=== PATIENT | female | born 1960 | race Caucasian/White ===

== ENCOUNTER 2016-04-27 11:04 | Day surgery (SDC) | payer OTHER ==
[~2016-04-27 11:04] MED LIST: ALBUTEROL HFA60 DOSE IN
--- NOTE | 2016-04-27 12:03 | NUR ---
PREOP INSTRUCTIONS GIVEN TO PATIENT. QUESTIONS ANSWERED. PATIENT VERBALIZES UNDERSTANDING. CONSENT CONFIRMED. NO PREOP MEDICATIONS GIVEN. PATIENT RESTING COMFORTABLY. KB
--- NOTE | 2016-04-27 14:17 | NUR ---
ID PT IN PRE-OP HOLDING ALLERGIES NOTED CONFIRMS CONSENT ANTIBIOTIC HUNG TO BE STARTED BY ANES
[2016-04-27] MEDS ORDERED: NORCO1 TA1 PO (15:22)
[2016-04-27] MEDS ORDERED: DOCUSATE CALCI240 MG PO (15:24)
[2016-04-27] MEDS ORDERED: METAMUCIL EQUIV1 PKT PO (15:25)
--- NOTE | 2016-04-27 15:26 | Provider's Discharge Care Plan ---
Problem, Goal, Plan Problem List 1. Hemorrhoids
--- NOTE | 2016-04-27 15:26 | Provider's Discharge Care Plan ---
Problem, Goal, Plan Problem List 1. Hemorrhoids
--- NOTE | 2016-04-27 15:30 | NUR ---
PATIENT ARRIVED TO PACU AT 1525. SPONT RESP. AROUSABLE. VITALS STABLE. PATIENT DENIES ANY NAUSEA OR PAIN AT THIS TIME. WILL CONTINUE TO MONITOR.
--- NOTE | 2016-04-27 16:03 | NUR ---
AT APPROXIMATELY 1550, PATIENT BEGAN CRYING AND COMPLAINING OF SOB ALONG WITH PAIN AND PRESSURE IN CHEST. AUDIBLE WHEEZING HEARD BY RN. VITALS STABLE ON ROOM AIR, WITH TELEMETRY SHOWING NSR. O2 PLACED ON PATIENT VIA MASK. RN SUMMONED ANESTHESIA PROVIDER. RACEMIC EPI INHALATION GIVEN, FOLLOWED BY DUO NEB TREATMENT. PATIENT ALSO GIVEN MIDAZOLAM FOR ANXIETY. PATIENT NO LONGER WHEEZING- RESTING QUIETLY. WILL CONTINUE TO MONITOR
[2016-04-27 16:39] VITALS: BP 142/96
--- NOTE | 2016-04-27 17:48 | NUR ---
PT ADMITTED IN STABLE CONDITION AND HAS BEEN RESTING, SLOWLY ADVANCING DIET, AMBULATING, VOIDED. REPORTS SOME SLIGHT PAIN AND DISCOMFORT REPORTED.
--- NOTE | 2016-04-27 18:19 | NUR ---
PT RECOVERED AND DC'D PER DR SPEARS ORDERS. PT STABLE, A/O, AMBULATORY, VOIDING, VSS, AFEBRILE, NO N/V, PASSING GAS, PAIN AT A MINIMUM. REVIEWED DC PAPERWORK INCLUDING RX AND PLAN OF CARE AT HOME. PT VERBALIZED UNDERSTANDING. DAUGHTER AND S.O. AT BEDSIDE. PT TAKEN OUT TO DC VEHICLE IN STABLE CONDITION VIA WHEELCHAIR BY TURRET LATHE TENDER.
--- NOTE | 2016-04-27 20:43 | OPERATIVE REPORT ---
DATE OF SURGERY: 04/27/2016 SURGEON: Jc Brush MD PREOPERATIVE DIAGNOSES: 1. Rectal bleeding 2. Rectal mucosal prolapse 3. Personal history of colon polyps POSTOPERATIVE DIAGNOSES: 1. Cecal ulceration 2. Mild gastritis 3. Rectal mucosal prolapse 4. Hiatal hernia 5. Diverticulosis PROCEDURES PERFORMED: 1. Colonoscopy with biopsy 2. Esophagogastroduodenoscopy with biopsy 3. Procedure for prolapse and hemorrhoids ANESTHESIA: General endotracheal. COMPLICATIONS: No intraoperative complications were encountered. INDICATIONS: The patient is a 55-year-old woman with longstanding and progressive mucosal prolapse. She has had bleeding associated with this. She has the need for self reduction of rectal mucosa and has not had endoscopic evaluation. SURGICAL TECHNIQUE: The patient was taken to the endoscopy suite, where a general anesthetic was administered and patient placed in the left lateral decubitus position. A well-lubricated colonoscope was advanced the length of colon under direct vision. There was obvious rectal mucosal prolapse seen of a rather generous nature. The colonoscope was advanced to the cecum. Just above the ileocecal valve on the opposite side of the colon, there was an ulcerated lesion. This was not associated with true mucosal lesion. This area was sampled with the biopsy forceps and the surrounding mucosa looked normal. There were no signs of diffuse inflammatory bowel disease and this did not affect the ileocecal valve. Once samples were obtained, the colonoscope was withdrawn. Multiple diverticula were seen in the sigmoid, but no other mucosal abnormalities, including a retroflexed view of the rectum. The upper GI endoscope was introduced and the stomach and duodenum examined. The duodenum was normal. On withdrawal, there was some mild erythema in the antrum and a single biopsy was taken for Helicobacter testing using the CLOtest. A retroflexed view demonstrated a sliding-type hiatal hernia of moderate dimensions. On withdrawal, the squamocolumnar junction was examined and did not appear to be particularly unusual and the rest of the esophagus was normal. After completion of endoscopy, the patient was repositioned in prone jackknife position with buttocks by tapes. The patient had obvious circumferential mucosal prolapse without circular lines. This did not appear to be full-thickness rectal procidentia. After prep and drape, an inferior hemorrhoidal block was done with 0.5% Marcaine with epinephrine. The [employer] rectal stapler was used. The speculum was introduced and a circumferential pursestring of 3-0 Prolene was placed in the rectal mucosa about 2 cm above the dentate line. There was quite a lot of redundant mucosa in this area. This was gathered up and placed through the third hole in the anvil and tied down. The stapler was then connected and the stapler fired. The stapler was held closed for about a minute for hemostasis and then opened up and removed. A good circumferential band of about 2 cm of rectal mucosa was obtained. Initially, there was little bleeding from the staple line. Additional Marcaine was instilled and pressure was held with a sponge. This was then reexamined and there was absolutely no sign of bleeding whatsoever from the staple line when examined. The protrusion of mucosa was also markedly better. The patient left in good condition.
== END 2016-04-27 18:15 | disposition home or self-care (01) ==
LOC: OR SRH 11:04 → SCU SRH 11:07
PROVIDERS: Surgery
PROC: 0DB68ZX Excision of Stomach, Via Natural or Artificial Opening Endoscopic, Diagnostic (ICD-10-PCS; principal; 2016-04-27 13:00)
PROC: 0DBH8ZX Excision of Cecum, Via Natural or Artificial Opening Endoscopic, Diagnostic (ICD-10-PCS; principal; 2016-04-27 13:00)
PROC: 06BY0ZC Excision of Hemorrhoidal Plexus, Open Approach (ICD-10-PCS; principal; 2016-04-27 13:00)
DX: K62.3 Rectal prolapse (principal); K64.2 Third degree hemorrhoids; K63.3 Ulcer of intestine; K29.70 Gastritis, unspecified, without bleeding; K44.9 Diaphragmatic hernia without obstruction or gangrene; K57.30 Diverticulosis of large intestine without perforation or abscess without bleeding; J44.9 Chronic obstructive pulmonary disease, unspecified; Z72.0 Tobacco use
CPT/HCPCS: 29229; 29240; 50004; 60001; 70002; 80102; 82281; 82943; 82944; 83120; 83526; 90705

== ENCOUNTER 2016-09-04 17:20 | Emergency (ER) | payer OTHER ==
[~2016-09-04 17:20] MED LIST changes: +DOCUSATE CALCI240 MG PO; +METAMUCIL EQUIV1 PKT PO; +NORCO1 TA1 PO
--- NOTE | 2016-09-04 19:46 | DIAGNOSTIC IMAGING REPORT ---
PROCEDURE: XR KNEE 4 VIEWS - LEFT INDICATION: TRAUMA/INJURY TECHNIQUE: Four views of the left knee. COMPARISON: Plain films of the left tibia and fibula from 10/03/2013 FINDINGS: Diffusely decreased mineralization. The joint is in normal alignment. There is a chronic compression of the lateral tibial plateau with flattening of the lateral tibial spine. Slight cortical irregularity along the lateral femoral condyle. The patella appears grossly intact. Small to moderate sized suprapatellar joint effusion. No chondrocalcinosis. IMPRESSION: 1. Chronic mild impaction deformity of the lateral tibial plateau with flattening of the lateral tibial spine, similar morphology compared to the prior study. 2. An acute on chronic fracture would not be well seen given prior deformity and demineralization. An MRI is recommended. 3. Joint effusion. 4. Discussed with Dr. Paulino in the emergency room.
--- NOTE | 2016-09-04 19:48 | DIAGNOSTIC IMAGING REPORT ---
PROCEDURE: XR TIBIA AND FIBULA - LEFT INDICATION: TRAUMA/INJURY TECHNIQUE: Two views of the left tibia and fibula COMPARISON: 10/03/2013 FINDINGS: Decreased mineralization. No definite acute fractures. There is a compression/impaction deformity involving the lateral tibial plateau, similar morphology compared to the prior study. Healed deformity of prior distal fibular diaphyseal fracture. Alignment is normal. No new soft tissue calcifications or radiodense foreign bodies. IMPRESSION: 1. Chronic lateral tibial plateau and distal fibular deformities. 2. No definite acute abnormalities.
--- NOTE | 2016-09-04 20:08 | ED CLINICAL REPORT ---
Clinical Report - Physicians/Mid Levels [facility] [address] [place] [address] 09/04/2016 17:21 Patient: MAGDALENA GILL Time Seen: 17:35. Arrived- By private vehicle. Historian- patient. CPT: ER phys charges level 3 (#[id number]). HISTORY OF PRESENT ILLNESS Chief Complaint: INJURY TO LEFT LOWER EXTREMITY (KNEE). Location of injuries- left knee. 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 The patient complains of moderate pain. No blow to the head or neck pain. REVIEW OF SYSTEMS The patient complains of pain on weight bearing. No numbness, weakness, laceration or fever. All systems otherwise negative, except as recorded above. PAST HISTORY See nurses notes. Hypertension. Cellulitis. Sprain. Hemorrhoids. Substance Abuse. Nephrolithiasis. Degenerative Joint Disease. Arthritis. Hernia. Sciatica. Acute Pain. Lung Disease. Otitis Externa. - ADDITIONAL SURGERIES: Fracture Repair. Tubal Ligation. Ureteral Stent. Medications: Albuterol Sulfate Inhalation 2 unit doses, PRN. Allergies: Amoxicillin. (facial swelling) Codeine. Possible (GI upset). SOCIAL HISTORY Heavy tobacco smoker (cigarette)- less than 1 pack per day. Occasional alcohol use. ADDITIONAL NOTES The nursing notes have been reviewed. PHYSICAL EXAM Vital Signs: 09/04/2016 17:35 BP: 141/79. HR: 90. RR: 20. O2 saturation: 100%. Temp: 98.1 F. Pain level now: 5/10. Appearance: Alert. Patient in mild distress. Head: Head non-tender. Neck: Non-tender. Respiratory: Chest nontender. Abdomen: Nontender. Back: No tenderness. Skin: Skin intact. Skin warm. Extremities: Left knee: moderate tenderness and mild swelling located in the suprapatellar area. Limited ROM (diminished flexion). Neurovascular intact distally. No ligamentous laxity present. No joint effusion. No abrasion, ecchymosis or deformity. Neuro: Oriented X 3. No motor deficit. No sensory deficit. Reflexes normal. LABS, X-RAYS, AND EKG Lt Knee X-ray: (mild joint effusion, DJD. No acute findings. Would follow up with MRI.). Views: AP, lateral and oblique. Technique: good. The X-rays were independently viewed by me. A comparison with prior films reveals that the findings are unchanged. PROGRESS AND PROCEDURES Patient/family counseled. Disposition: Discharged. Condition: stable. CLINICAL IMPRESSION Left knee effusion; sprain of the left posterior cruciate ligament. Fall from tree. Hamstring and gastrocnemius strain. INSTRUCTIONS Apply ice for 15-20 minutes three times a day for one days followed by moist heat 15-20 minutes three times a day for one weeks until better. You may walk and bear weight as tolerated. Warnings: GENERAL WARNINGS: Return or contact your physician immediately if your condition worsens or changes unexpectedly, if not improving as expected, or if other problems arise. Your Current Medications: CONTINUE TAKING THE FOLLOWING MEDICATIONS: Albuterol Sulfate Inhalation : 2 unit doses PRN. Prescription Medications: Hydrocodone/APAP 5mg/325mg: take 1 to 2 orally every 6 hours as needed for pain. Dispense fifteen (15). No refills. Ibuprofen 600mg tablets: take 1 tablet orally every 8 hours as needed for pain. Dispense thirty (30). No refills. Soma 350 mg: Take 1 orally every 6 hours as needed for muscle spasm. Dispense twenty (20). No refills. Substitution is permissible. Understanding of the discharge instructions verbalized by patient. [facility] [address] [facility] [address] Follow up in one week. Call for an appointment. Reason for referral: knee follow up and MRI examination recommended by radiologist. (Electronically signed by Eliecer Paulino MD 09/07/2016 12:38)
--- NOTE | 2016-09-04 20:08 | ED ORDER SUMMARY ---
..... Patient: MAGDALENA GILL OrderSheet [facility] VisitID: [id number] [address] [place] [address] 55y, F Registration Date/Time: 09/04/2016 ORDER SHEET Weight: 68.0 kg (stated) Allergies: Amoxicillin, Codeine GENERAL ORDERS: Knee 4V Left Urgent (17:48 09/04/2016 Jaimee GHOSH) (Ack 17:50 LORENZAoerdangelo) (18:38 DDean R.N.) Tibia/Fibula Left Urgent (17:48 09/04/2016 Jaimee GHOSH) (Ack 17:50 LORENZAoemartha) (18:38 DDean R.N.) Knee Immobilizer (19:38 09/04/2016 Jaimee GHOSH) (Cancelled: Patient Blkfeck43:46 Jaimee GHOSH) Crutches (19:39 09/04/2016 Jaimee GHOSH) (Cancelled: Patient [id number]:46 Jaimee GHOSH) Luis Wrap (19:46 09/04/2016 Jaimee GHOSH) (20:04 DDean R.N.) MEDICATION ORDERS: IV FLUIDS: ORDER SHEET NOTES: [Electronically signed by Randee Han R.N. (20:42 09/04/2016)] [Electronically signed by Eliecer Paulino MD (12:38 09/07/2016)] [Electronically locked/signed by Randee Han R.N. (20:42 09/04/2016)]
--- NOTE | 2016-09-04 20:08 | ED ORDER SUMMARY ---
..... Patient: MAGDALENA GILL OrderSheet [facility] VisitID: [id number] [address] [place] [address] 55y, F Registration Date/Time: 09/04/2016 ORDER SHEET Weight: 68.0 kg (stated) Allergies: Amoxicillin, Codeine GENERAL ORDERS: Knee 4V Left Urgent (17:48 09/04/2016 Jaimee GHOSH) (Ack 17:50 LORENZAoerdangelo) (18:38 DDean R.N.) Tibia/Fibula Left Urgent (17:48 09/04/2016 Jaimee GHOSH) (Ack 17:50 LORENZAoemartha) (18:38 DDean R.N.) Knee Immobilizer (19:38 09/04/2016 Jaimee GHOSH) (Cancelled: Patient [id number]:46 Jaimee GHOSH) Crutches (19:39 09/04/2016 Jaimee GHOSH) (Cancelled: Patient [id number]:46 Jaimee GHOSH) Luis Wrap (19:46 09/04/2016 Jaimee GHOSH) (20:04 DDean R.N.) MEDICATION ORDERS: IV FLUIDS: ORDER SHEET NOTES: [Electronically signed by Randee Han R.N. (20:42 09/04/2016)] [Electronically signed by Eliecer Paulino MD (12:38 09/07/2016)] [Electronically locked/signed by Randee Han R.N. (20:42 09/04/2016)]
--- NOTE | 2016-09-04 20:08 | ED NURSING NOTES ---
Clinical Report - Nurses [facility] [address] [place] [address] 09/04/2016 17:21 Patient: MAGDALENA GILL TRIAGE Triage time 1735. Acuity: LEVEL 3. Chief Complaint: INJURY TO LEFT KNEE. INJURY TO THE LEFT KNEE, LEFT LEG and LEFT ANKLE. 17:35. --17:46 Randee Han R.N. 17:35 09/04/16. BP: 141/79. HR: 90. RR: 20. O2 saturation: 100%. Temp: 98.1 F. Pain level now: 08/30. --17:46 Randee Han R.N. Weight: 68 kg stated. Height/Length: 62 inches Per Patient. BMI: 27.4. --17:42 Randee Han R.N. Medications Albuterol Sulfate Inhalation 2 unit doses, PRN. --17:43 Randee Han R.N. Allergies Amoxicillin. (facial swelling) Codeine. Possible (GI upset) --17:42 Randee Han R.N. History Arrived by private vehicle. Historian: patient. Unaccompanied. Primary physician ([facility]). This occurred (Sat night). Mechanism of injury: fell (was standing on a tree stump and it crumbled under her, she stepped down and twisted both ankles. c/op left knee, calf pain). She has had trouble walking. PAST MEDICAL HX: The patient is post-menopausal. SOCIAL HX: Heavy tobacco smoker (cigarette)- less than 1 pack per day. Occasional alcohol use. No drug use. --17:46 Randee Han R.N. PROBLEMS: Hypertension. Cellulitis. Sprain. Hemorrhoids. Substance Abuse. Nephrolithiasis. Degenerative Joint Disease. Arthritis. Hernia. Sciatica. Acute Pain. Lung Disease. Otitis Externa. --17:44 Randee Han R.N. ADDITIONAL SURGERIES: Fracture Repair. Tubal Ligation. Ureteral Stent. --17:44 Randee Han R.N. Interventions ID band on patient. To treatment room. --17:46 Randee Han R.N. PHYSICAL ASSESSMENT 17:35. Ambulatory to room. GENERAL / NEURO / PSYCH: Oriented X 4. Alert. Appears in pain. EXTREMITIES: Limited ROM present. Capillary refill is less than 2 seconds in the extremities. Left knee: tenderness. Left leg: tenderness. Left ankle: tenderness. SKIN: Skin is warm and dry. --17:47 Randee Han R.N. NURSING PROGRESS NOTES 13:25. Patient returned from radiology by wheelchair with tech. --18:38 Randee Han R.N. 17:35. Cold pack applied. Patient gowned. Reassurance given. Patient identifiers checked. Call light placed in reach. Side rails up. Bed placed in lowest position. Patient ready for evaluation- chart flagged. --17:46 Randee Han R.N. 18:13 09/04/16. Patient walked to radiology with tech. --18:13 Randee Han R.N. correction to prior entry - time 1825, NOT 1325. --19:24 Randee Han R.N. 19:24 09/04/16. BP: 121/81. HR: 88. RR: 18. O2 saturation: 99% on room air. Temp: deferred. Pain level now: 6/10. Additional comments: pt given ice pack, is waiting for radiology report. --19:25 Randee Han R.N. 20:00. 6 inch luis bandage applied by nurse; distal pulses intact, sensation intact and motor function within normal limits (Pt declined knee immobilizer. Luis wrap applied). --20:13 Randee Han R.N. DISPOSITION / DISCHARGE 20:15. Condition at departure: stable. No learning barriers present. Discharge instructions provided and reviewed with the patient. Reviewed medication(s) (vicodin, motrin, soma). Treatments reviewed (ice, luis wrap). Patient verbalized understanding. Written instructions provided in Grenadian. The patient was discharged home and unaccompanied at time of discharge. She left the Emergency Department ambulatory and via private vehicle. Patient driving. --20:41 Randee Han R.N. 20:15 09/04/16. BP: 128/80. HR: 86. RR: 18. O2 saturation: 100%. Temp: deferred. Pain level now: 09/30. --20:41 Randee Han R.N. Locked/Released at 09/04/2016 20:42 by Randee Han R.N.
--- NOTE | 2016-09-04 20:08 | ED NURSING NOTES ---
Clinical Report - Nurses [facility] [address] [place] [address] 09/04/2016 17:21 Patient: MAGDALENA GILL TRIAGE Triage time 1735. Acuity: LEVEL 3. Chief Complaint: INJURY TO LEFT KNEE. INJURY TO THE LEFT KNEE, LEFT LEG and LEFT ANKLE. 17:35. --17:46 Randee Han R.N. 17:35 09/04/16. BP: 141/79. HR: 90. RR: 20. O2 saturation: 100%. Temp: 98.1 F. Pain level now: 08/30. --17:46 Randee Han R.N. Weight: 68 kg stated. Height/Length: 62 inches Per Patient. BMI: 27.4. --17:42 Randee Han R.N. Medications Albuterol Sulfate Inhalation 2 unit doses, PRN. --17:43 Randee Han R.N. Allergies Amoxicillin. (facial swelling) Codeine. Possible (GI upset) --17:42 Randee Han R.N. History Arrived by private vehicle. Historian: patient. Unaccompanied. Primary physician ([facility]). This occurred (Sat night). Mechanism of injury: fell (was standing on a tree stump and it crumbled under her, she stepped down and twisted both ankles. c/op left knee, calf pain). She has had trouble walking. PAST MEDICAL HX: The patient is post-menopausal. SOCIAL HX: Heavy tobacco smoker (cigarette)- less than 1 pack per day. Occasional alcohol use. No drug use. --17:46 Randee Han R.N. PROBLEMS: Hypertension. Cellulitis. Sprain. Hemorrhoids. Substance Abuse. Nephrolithiasis. Degenerative Joint Disease. Arthritis. Hernia. Sciatica. Acute Pain. Lung Disease. Otitis Externa. --17:44 Randee Han R.N. ADDITIONAL SURGERIES: Fracture Repair. Tubal Ligation. Ureteral Stent. --17:44 Randee Han R.N. Interventions ID band on patient. To treatment room. --17:46 Randee Han R.N. PHYSICAL ASSESSMENT 17:35. Ambulatory to room. GENERAL / NEURO / PSYCH: Oriented X 4. Alert. Appears in pain. EXTREMITIES: Limited ROM present. Capillary refill is less than 2 seconds in the extremities. Left knee: tenderness. Left leg: tenderness. Left ankle: tenderness. SKIN: Skin is warm and dry. --17:47 Randee Han R.N. NURSING PROGRESS NOTES 13:25. Patient returned from radiology by wheelchair with tech. --18:38 Randee Han R.N. 17:35. Cold pack applied. Patient gowned. Reassurance given. Patient identifiers checked. Call light placed in reach. Side rails up. Bed placed in lowest position. Patient ready for evaluation- chart flagged. --17:46 Randee Han R.N. 18:13 09/04/16. Patient walked to radiology with tech. --18:13 Randee Han R.N. correction to prior entry - time 1825, NOT 1325. --19:24 Randee Han R.N. 19:24 09/04/16. BP: 121/81. HR: 88. RR: 18. O2 saturation: 99% on room air. Temp: deferred. Pain level now: 6/10. Additional comments: pt given ice pack, is waiting for radiology report. --19:25 Randee Han R.N. 20:00. 6 inch luis bandage applied by nurse; distal pulses intact, sensation intact and motor function within normal limits (Pt declined knee immobilizer. Luis wrap applied). --20:13 Randee Han R.N. DISPOSITION / DISCHARGE 20:15. Condition at departure: stable. No learning barriers present. Discharge instructions provided and reviewed with the patient. Reviewed medication(s) (vicodin, motrin, soma). Treatments reviewed (ice, luis wrap). Patient verbalized understanding. Written instructions provided in Russian. The patient was discharged home and unaccompanied at time of discharge. She left the Emergency Department ambulatory and via private vehicle. Patient driving. --20:41 Randee Han R.N. 20:15 09/04/16. BP: 128/80. HR: 86. RR: 18. O2 saturation: 100%. Temp: deferred. Pain level now: 09/30. --20:41 Randee Han R.N. Locked/Released at 09/04/2016 20:42 by Randee Han R.N.
--- NOTE | 2016-09-04 20:08 | ED CLINICAL REPORT ---
Clinical Report - Physicians/Mid Levels [facility] [address] [place] [address] 09/04/2016 17:21 Patient: MAGDALENA GILL Time Seen: 17:35. Arrived- By private vehicle. Historian- patient. CPT: ER phys charges level 3 (#[id number]). HISTORY OF PRESENT ILLNESS Chief Complaint: INJURY TO LEFT LOWER EXTREMITY (KNEE). Location of injuries- left knee. 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 The patient complains of moderate pain. No blow to the head or neck pain. REVIEW OF SYSTEMS The patient complains of pain on weight bearing. No numbness, weakness, laceration or fever. All systems otherwise negative, except as recorded above. PAST HISTORY See nurses notes. Hypertension. Cellulitis. Sprain. Hemorrhoids. Substance Abuse. Nephrolithiasis. Degenerative Joint Disease. Arthritis. Hernia. Sciatica. Acute Pain. Lung Disease. Otitis Externa. - ADDITIONAL SURGERIES: Fracture Repair. Tubal Ligation. Ureteral Stent. Medications: Albuterol Sulfate Inhalation 2 unit doses, PRN. Allergies: Amoxicillin. (facial swelling) Codeine. Possible (GI upset). SOCIAL HISTORY Heavy tobacco smoker (cigarette)- less than 1 pack per day. Occasional alcohol use. ADDITIONAL NOTES The nursing notes have been reviewed. PHYSICAL EXAM Vital Signs: 09/04/2016 17:35 BP: 141/79. HR: 90. RR: 20. O2 saturation: 100%. Temp: 98.1 F. Pain level now: 5/10. Appearance: Alert. Patient in mild distress. Head: Head non-tender. Neck: Non-tender. Respiratory: Chest nontender. Abdomen: Nontender. Back: No tenderness. Skin: Skin intact. Skin warm. Extremities: Left knee: moderate tenderness and mild swelling located in the suprapatellar area. Limited ROM (diminished flexion). Neurovascular intact distally. No ligamentous laxity present. No joint effusion. No abrasion, ecchymosis or deformity. Neuro: Oriented X 3. No motor deficit. No sensory deficit. Reflexes normal. LABS, X-RAYS, AND EKG Lt Knee X-ray: (mild joint effusion, DJD. No acute findings. Would follow up with MRI.). Views: AP, lateral and oblique. Technique: good. The X-rays were independently viewed by me. A comparison with prior films reveals that the findings are unchanged. PROGRESS AND PROCEDURES Patient/family counseled. Disposition: Discharged. Condition: stable. CLINICAL IMPRESSION Left knee effusion; sprain of the left posterior cruciate ligament. Fall from tree. Hamstring and gastrocnemius strain. INSTRUCTIONS Apply ice for 15-20 minutes three times a day for one days followed by moist heat 15-20 minutes three times a day for one weeks until better. You may walk and bear weight as tolerated. Warnings: GENERAL WARNINGS: Return or contact your physician immediately if your condition worsens or changes unexpectedly, if not improving as expected, or if other problems arise. Your Current Medications: CONTINUE TAKING THE FOLLOWING MEDICATIONS: Albuterol Sulfate Inhalation : 2 unit doses PRN. Prescription Medications: Hydrocodone/APAP 5mg/325mg: take 1 to 2 orally every 6 hours as needed for pain. Dispense fifteen (15). No refills. Ibuprofen 600mg tablets: take 1 tablet orally every 8 hours as needed for pain. Dispense thirty (30). No refills. Soma 350 mg: Take 1 orally every 6 hours as needed for muscle spasm. Dispense twenty (20). No refills. Substitution is permissible. Understanding of the discharge instructions verbalized by patient. [facility], , [address] [facility] [address] Follow up in one week. Call for an appointment. Reason for referral: knee follow up and MRI examination recommended by radiologist. (Electronically signed by Eliecer Paulino MD 09/07/2016 12:38)
--- NOTE | 2016-09-07 12:38 | ED MAR SUMMARY ---
..... Medication Administration Record [facility] [address] [place], [place] [id number] Patient: MAGDALENA GILL Visit ID: [id number] 55y, F Weight: 68.0 kg Height/Length: 62 in BMI: 27.4 ALLERGIES: Amoxicillin, Codeine
--- NOTE | 2016-09-07 12:38 | ED MAR SUMMARY ---
..... Medication Administration Record [facility] [address] [place], [place] [id number] Patient: MAGDALENA GILL Visit ID: [id number] 55y, F Weight: 68.0 kg Height/Length: 62 in BMI: 27.4 ALLERGIES: Amoxicillin, Codeine
--- NOTE | 2016-09-07 12:38 | ED MED RECONCILIATION SUMMARY ---
Patient: MAGDALENA GILL Medication Reconciliation Report [facility] VisitID: [id number] [address] [place] [address] 55y, F Registration Date/Time: 09/04/2016 Weight: 68.0 kg Height/Length: 62 in. BMI: 27.4 ALLERGIES: Amoxicillin, Codeine The patient's Home Medications are listed below: CONTINUE TAKING THE FOLLOWING MEDICATIONS: Albuterol Sulfate Inhalation 2 unit doses, PRN The source(s) of the original Home Medication information: Not obtained. The following Medications were given to the patient in the Emergency Department: None. The following Medications were prescribed to the patient: Hydrocodone/APAP 5mg/325mg: take 1 to 2 orally every 6 hours as needed for pain. Dispense fifteen (15). No refills. -- Eliecer Paulino MD Ibuprofen 600mg tablets: take 1 tablet orally every 8 hours as needed for pain. Dispense thirty (30). No refills. -- Eliecer Paulino MD Soma 350 mg: Take 1 orally every 6 hours as needed for muscle spasm. Dispense twenty (20). No refills. Substitution is permissible. -- Eliecer Paulino MD
--- NOTE | 2016-09-07 12:38 | ED MED RECONCILIATION SUMMARY ---
Patient: MAGDALENA GILL Medication Reconciliation Report [facility] VisitID: [id number] [address] [place] [address] 55y, F Registration Date/Time: 09/04/2016 Weight: 68.0 kg Height/Length: 62 in. BMI: 27.4 ALLERGIES: Amoxicillin, Codeine The patient's Home Medications are listed below: CONTINUE TAKING THE FOLLOWING MEDICATIONS: Albuterol Sulfate Inhalation 2 unit doses, PRN The source(s) of the original Home Medication information: Not obtained. The following Medications were given to the patient in the Emergency Department: None. The following Medications were prescribed to the patient: Hydrocodone/APAP 5mg/325mg: take 1 to 2 orally every 6 hours as needed for pain. Dispense fifteen (15). No refills. -- Eliecer Paulino MD Ibuprofen 600mg tablets: take 1 tablet orally every 8 hours as needed for pain. Dispense thirty (30). No refills. -- Eliecer Paulino MD Soma 350 mg: Take 1 orally every 6 hours as needed for muscle spasm. Dispense twenty (20). No refills. Substitution is permissible. -- Eliecer Paulino MD
--- NOTE | 2016-09-07 12:38 | ED DISCHARGE INSTRUCTIONS ---
Patient: MAGDALENA GILL General Instructions [facility] VisitID: [id number] [address] [place], [place] [id number] 55y, F Registration Date/Time: 09/04/2016 Left knee effusion; sprain of the left posterior cruciate ligament. Fall from tree. Hamstring and gastrocnemius strain. INSTRUCTIONS Apply ice for 15-20 minutes three times a day for one days followed by moist heat 15-20 minutes three times a day for one weeks until better. You may walk and bear weight as tolerated. Warnings: GENERAL WARNINGS: Return or contact your physician immediately if your condition worsens or changes unexpectedly, if not improving as expected, or if other problems arise. Your Current Medications: CONTINUE TAKING THE FOLLOWING MEDICATIONS: Albuterol Sulfate Inhalation : 2 unit doses PRN. Prescription Medications: Hydrocodone/APAP 5mg/325mg: take 1 to 2 orally every 6 hours as needed for pain. Dispense fifteen (15). No refills. Ibuprofen 600mg tablets: take 1 tablet orally every 8 hours as needed for pain. Dispense thirty (30). No refills. Soma 350 mg: Take 1 orally every 6 hours as needed for muscle spasm. Dispense twenty (20). No refills. Substitution is permissible. Understanding of the discharge instructions verbalized by patient. Follow-up with: [facility], , [address], [place], [address] Follow up in one week. Call for an appointment. Reason for referral: knee follow up and MRI examination recommended by radiologist. ADDITIONAL INFORMATION Mechanical Fall You have had a fall today. It appears that the cause is mechanical. That means that you slipped, tripped or lost your balance. If your fall had been due to fainting or a seizure, further tests would be required. Home Care: Rest today and resume your normal activities when you are feeling back to normal. If you were injured during the fall, follow the advice from your doctor regarding care of your injury. You may use acetaminophen (Tylenol) or ibuprofen (Motrin, Advil) to control pain, unless another pain medicine was prescribed. [NOTE: If you have chronic liver or kidney disease or ever had a stomach ulcer or GI bleeding, talk with your doctor before using these medicines.] Fall Prevention: Was there anything that caused your fall that can be fixed, removed, or replaced? Make your home safe by keeping walkways clear of objects you may trip over. Use non-slip pads under rugs. Do not walk in poorly lit areas. Do not stand on chairs or wobbly ladders. Use caution when reaching overhead or looking upward. This position can cause a loss of balance. Be sure your shoes fit properly, have non-slip bottoms and are in good condition. Be cautious when going up and down curbs, and walking on uneven sidewalks. If your balance is poor, consider using a cane or walker. Stay as active as you can. Balance, flexibility, strength, and endurance all come from exercise. They all play a role in preventing falls. Follow Up with your doctor or as advised by our staff. Get Prompt Medical Attention if any of the following occur: Repeated mechanical falls, or unexplained falls Dizziness, fainting or seizure Severe headache Chest pain or shortness of breath Palpitations (very rapid or very slow or irregular heartbeat) Blood in vomit, stools (black or red color) Weakness of an arm or leg or one side of the face Difficulty with speech or vision Knee Effusion A knee effusion is sometimes calledwater on the knee. The knee joint normally contains less than one ounce of lubricating fluid. Injury or inflammation of the knee joint causes extra fluid to collect there. When this occurs, the knee joint looks swollen and is usually painful. There may be difficulty in fully bending the knee. The most common cause of knee effusion is osteoarthritis due to wear and tear on the joint cartilage. Other causes include injury to the cartilage, inflammatory arthritis (such as gout or rheumatoid arthritis), and infection of the joint. If the cause of your knee effusion is not certain, a needle aspiration may be performed. This procedure removes a sample of joint fluid from the knee for testing. This is done with a local anesthetic. Removing excess fluid may also relieve swelling and pain. Home Care: Limit your activities. Avoid weight-bearing activities as much as possible when your knee is painful and swollen. Keep your leg elevated to reduce pain and swelling. When sleeping, place a pillow under the injured leg. When sitting, support the injured leg so it is level with your waist. This is very important during the first 48 hours. Apply an ice pack (ice cubes in a plastic bag, wrapped in a towel) over the injured area for 20 minutes every 1-2 hours the first day. Continue with ice packs 3-4 times a day for the next two days, then as needed for the relief of pain and swelling. You may use acetaminophen (Tylenol) or ibuprofen (Motrin, Advil) to control pain, unless another pain medicine was prescribed. [NOTE: If you have chronic liver or kidney disease or have ever had a stomach ulcer, talk with your doctor before using these medicines.] Ifcrutches or a walker have been recommended, do not bear full weight on the injured leg until you can do so without pain. Check with your doctor before returning to sports or full work duties. If you were given a Velcro knee brace: You may open the splint to apply ice. You may remove the splint to bathe and sleep, unless told otherwise. Follow Up with your doctor or as advised by our staff. If you are overweight, talk to your doctor about a weight loss program. The excess weight puts extra strain on your knees. Return Promptly or contact your doctor if any of the following occur: Increasing pain, redness or swelling of the knee Fever of 100.4F (38C) or higher, or as directed by your healthcare provider Sprain, Knee A sprain is an injury to the ligaments or capsule that holds a joint together. There are no broken bones. Most sprains take three to six weeks to heal. If the ligament is completely torn (severe sprain), it can take months to recover from. Most knee sprains are treated with a splint, knee immobilizer or elastic wrap for support. Severe sprains may require surgery. Home care The following guidelines will help you care for your injury at home: Stay off the injured leg as much as possible until you can walk on it without pain. If you have a lot of pain with walking, crutches or a walker may be prescribed. (These can be rented or purchased at many pharmacies and surgical or orthopedic supply stores). Follow your doctor's advice regarding when to begin bearing weight on that leg. Keep your leg elevated to reduce pain and swelling. When sleeping, place a pillow under the injured leg. When sitting, support the injured leg so it is level with your waist. This is very important during the first 48 hours. Apply an ice pack (ice cubes in a plastic bag, wrapped in a towel) over the injured area for 20 minutes every 12 hours the first day. You can place the ice pack directly over the splint. If a Velcro knee immobilizer was applied, you can open this to apply the ice pack directly to the knee. Continue with ice packs 34 times a day for the next two days, then as needed for the relief of pain and swelling. You may use acetaminophen or ibuprofen to control pain, unless another pain medicine was prescribed. If you have chronic liver or kidney disease or ever had a stomach ulcer or GI bleeding, talk with your doctor before using these medicines. If you were given a splint, keep it completely dry at all times. Bathe with your splint out of the water, protected with a large plastic bag, rubber-banded at the top end. If a fiberglass splint gets wet, you can dry it with a hair-dryer. If you have a Velcro knee immobilizer, you can remove this to bathe, unless told otherwise. Follow-up care Follow up with your doctor as advised. Any X-rays you had today dont show any broken bones, breaks, or fractures. Sometimes fractures dont show up on the first X-ray. Bruises and sprains can sometimes hurt as much as a fracture. These injuries can take time to heal completely. If your symptoms dont improve or they get worse, talk with your doctor. You may need a repeat X-ray. When to seek medical care Get prompt medical attention if any of the following occur: The plaster cast or splint becomes wet or soft The fiberglass cast or splint remains wet for more than 24 hours Pain or swelling increases Toes become cold, blue, numb or tingly You have been given the following additional information: Fall, Mechanical Knee Effusion Knee Sprain You may walk and bear weight as tolerated. (Electronically signed by Eliecer Paulino MD 09/07/2016 12:38)
== END 2016-09-04 20:18 | disposition home or self-care (01) ==
LOC: ED SRH 17:20
DX: S83.522A Sprain of posterior cruciate ligament of left knee, initial encounter (principal); S76.312A Strain of muscle, fascia and tendon of the posterior muscle group at thigh level, left thigh, initial encounter; M25.462 Effusion, left knee; W14.XXXA Fall from tree, initial encounter; Y93.89 Activity, other specified; Y92.830 Public park as the place of occurrence of the external cause; F17.210 Nicotine dependence, cigarettes, uncomplicated; I10 Essential (primary) hypertension